=== PATIENT | male | born 1955 | race African-American/Black ===

== ENCOUNTER 2017-04-23 08:03 | Day surgery (SDC) | payer OTHER ==
--- NOTE | 2017-04-19 10:29 | HISTORY AND PHYSICAL E ---
History and Physical NAME: GAMALIEL HALEY : 1955 AGE: 61Y ADMITTED: 04/24/2017 ROOM: HISTORY OF PRESENT ILLNESS: The patient is 61 years old, referred to use by MAX regarding history of polyps. SOCIAL HISTORY: Does not smoke, does not drink. PAST SURGICAL HISTORY: Colonoscopy in [place] in 2011. He did have polypectomy. History of vasectomy. REVIEW OF SYSTEMS: HEAD, EARS, EYES, NOSE AND THROAT: Unremarkable. Uses eyeglasses. CARDIAC: Hypertension. RESPIRATORY: Negative. GASTROINTESTINAL: History of colon polyps. NEUROPSYCH: PTSD. FAMILY HISTORY: Father heart disease. Mom had lupus. PHYSICAL EXAMINATION: GENERAL: Pleasant, 61 years old. VITAL SIGNS: Blood pressure 140/80, weight 250 pounds, pulse 60, respirations 18, temperature 98. HEAD, EARS, EYES, NOSE AND THROAT: Normal. ABDOMEN: Soft. NEUROLOGIC: Exam negative. MEDICATION: Benicar, ibuprofen, Tylenol. PLAN: Colon exam, admit 04/24. DICTATING PHYSICIAN: АННА CHURCH M.D. [id number] PHY#: [id number] ID: [id number] JOB#: [id number] ACCT: [id number] cc:[facility] АННА CARTER M.D. >
[~2017-04-23 08:03] MED LIST: EPINEPHRINE INJ 1 MG/10 ML DISP.SYRIN ONE; FENTANYL CITRATE INJ/PF 100 MCG/2 ML AMPUL ONE; FLUMAZENIL INJ 0.5 MG/5 ML VIAL ONE; GLUCAGON,HUMAN RECOMB 1 MG INJ ONE; GLYCOPYRROLATE INJ 0.4 MG/2 ML VIAL ONE; NALOXONE HCL INJ/PF 0.4 MG/1 ML SDV ONE; ONDANSETRON HCL INJ/PF 4 MG/2 ML SDV ONE
[2017-04-23] MEDS: MIDAZOLAM 2 MG/2 ML INJ ONE ×2 (09:32→09:38)
[2017-04-23 10:55] VITALS: BP 128/77
--- NOTE | 2017-04-23 12:11 | DISCHARGE SUMMARY E ---
Discharge Summary NAME: GAMALIEL HALEY : 1955 AGE: 61Y ADMITTED: 04/23/2017 DISCHARGED: 04/23/2017 The patient is a 61-year-old male, underwent colon screening today. It shows no polyps. He did have a colonoscopy 5 years ago and he was told he had polypectomy. Today's colon shows no polyps. We reached the cecum, but due to the patient's size, I could not have complete visualization of his cecum. Consider barium enema in 6 months to a year with concentration on visualization of the cecum. FINAL DIAGNOSIS: COLON SCREENING, NO POLYPS. Recommend barium enema with concentration on the cecum, which was not thoroughly visualized by colon exam. DICTATING PHYSICIAN: АННА CHURCH M.D. [id number] PHY#: [id number] ID: [id number] JOB#: [id number] ACCT: [id number] cc:АННА CHURCH M.D. , [facility] >
--- NOTE | 2017-04-23 12:11 | OPERATIVE REPORT E ---
Operative Report NAME: GAMALIEL HALEY : 1955 AGE: 61Y DATE OF SURGERY: 04/23/2017 ROOM: PREOPERATIVE DIAGNOSIS: Colon screening, previous colonoscopy 5 years ago at [facility] shows resected polyp by history. Today's colonoscopy was successful to the cecum. The cecum partially visualized and shows no polyps. Redundant long colon. Prep was okay but moderate amount of liquid stool scattered all around the colon. OPERATION: Colonoscopy. SURGEON: АННА CHURCH M.D. ANESTHESIA: Versed 2 and fentanyl 100. TISSUE REMOVED OR ALTERED: None. PROCEDURE: Rectum exam normal. Sigmoid descending colon normal. Transverse colon normal. Ascending colon normal. Cecum partially visualized to the cecum, not in the cecum. I can see the cecum head on but I could not visualize it thoroughly because of patient's size and *------* syndrome. Scope withdrawn from around the cecum into ascending, transverse, descending, sigmoid, all the way to the rectum. CONCLUSION: No polyps. No malignancy. No diverticulosis. Essentially negative colon for polyps. PLAN: Because of the redundancy and the size of the colon and the inadequate visualization of the cecum, I recommend followup barium enema 6 months to a year with attention to cecum visualization by barium enema which was uncompleted by colonoscopy. DICTATING PHYSICIAN: АННА CHURCH M.D. [id number] PHY#: [id number] ID: [id number] JOB#: [id number] ACCT: [id number] cc:[facility] АННА CHURCH M.D. >
== END 2017-04-23 10:55 | disposition home or self-care (01) ==
LOC: END 08:03
PROVIDERS: ATTEND Specialist
PROC: 0DJD8ZZ Inspection of Lower Intestinal Tract, Via Natural or Artificial Opening Endoscopic (ICD-10-PCS; principal; 2017-04-23 09:00)
DX: Z12.11 Encounter for screening for malignant neoplasm of colon (principal); Q43.8 Other specified congenital malformations of intestine; I10 Essential (primary) hypertension
CPT/HCPCS: 45378; J2250; J3010; J1610; J2405; J0171; J2310; J3490